=== PATIENT | female | born 1945 | race Caucasian/White ===

== ENCOUNTER → 2016-09-13 | Outpatient (CLI) | payer MEDICARE, OTHER ==
[~2016-09-13] MED LIST: ALAWAY10 ML OPHTH; ALDACTONE25 MG PO; ALLERGY SHOT SUB-Q; ASPIRIN EC81 MG PO; ASPIRIN LO-DOSE81 MG PO; ASPIRIN325 MG PO; ATROVENT HFA12.9 G1 INH; ATROVENT NASAL15 ML NOSE; CHLORASEPTIC SP1 BOT MT; CLARITIN10 MG PO; CLEOCIN HCL300 MG PO; COQ-10100 MG PO; COQ1050 MG PO; CPAP INH; CROMOLYN SODIUM26 ML NOSE; ELAVIL50 MG PO; EVENING PRIMR1000 MG PO; K-TAB 10MEQ10 MEQ PO; LASIX20 M1 PO; LASIX20 MG PO; LASIX40 MG PO; LEVAQUIN750 MG PO; MAALOX LIQ UNIT30 ML PO; MOBIC7.5 MG PO; MSM1000 M1 PO; MYCELEX10 MG PO; NASAL ALLERGY S13 ML NOSE; NASALCROM26 ML NOSE; OMEPRAZOLE40 MG PO; OXYGEN M-15 INH; POTASSIUM CHLO20 MEQ PO; PROTONIX20 MG PO; PROTONIX40 MG PO; PROVENTIL OR V6.7 GM INH; RESTORE TEARS30 ML OPHTH; SALONPAS PATCH1 EAC1 TRANS; SINGULAIR10 MG PO; STOOL SOFTENER100 MG PO; SYMBICORT 16010.2 GM INH; THERA-VITE W/ B1 TAB PO; THERAGRAN-M1 TAB PO; TUSSIN DM COUG118 ML PO; TYLENOL ARTHRI650 MG PO; TYLENOL EXTRA500 MG PO; ULTRAM50 MG PO; VISION PLUS LU1 EACH PO; VITAMIN D-32000 UNI1 PO; Z-PAK250 MG PO; ZANTAC (NON-FO150 MG PO; ZAROXOLYN2.5 MG PO; ZOFRAN ODT4 MG PO; ZYRTEC10 M3 PO; ZYRTEC10 MG PO; [UNRECOGNIZED DRUG - OTHER] PO
== END | disposition disaster alternative care site (69) ==
LOC: GRAD 09-06 08:00
DX: M54.5 Low back pain (principal); M62.838 Other muscle spasm; R26.9 Unspecified abnormalities of gait and mobility; R20.0 Anesthesia of skin; Z53.8 Procedure and treatment not carried out for other reasons

== ENCOUNTER → 2016-09-29 | Day surgery (SDC) | payer MEDICARE, OTHER | LOC: GOPD 09-24 | DX: M48.06 Spinal stenosis, lumbar region (principal); M43.16 Spondylolisthesis, lumbar region; M51.36 Other intervertebral disc degeneration, lumbar region; J44.9 Chronic obstructive pulmonary disease, unspecified; G47.33 Obstructive sleep apnea (adult) (pediatric); Z88.1 Allergy status to other antibiotic agents; Z88.8 Allergy status to other drugs, medicaments and biological substances; Z90.49 Acquired absence of other specified parts of digestive tract; Z98.890 Other specified postprocedural states | CPT/HCPCS: J2001; J7030 ==